=== PATIENT | female | born 1980 | race Two or more races ===

== ENCOUNTER → 2024-02-20 | Outpatient (CLI) | payer MEDICAID, SELFPAY ==
--- NOTE | 2024-02-20 11:00 | XR_ITS ---
Examination: Thyroid sonography complete TECHNIQUE: Multiple grayscale sonographic images right and left thyroid lobes are carful analysis Exam date and time: February 20, 2024 1136 hours INDICATIONS: Diagnosis hypothyroidism 10 years ago. FINDINGS: Right thyroid 6.1 x 2.7 x 3.1 cm No solid nodules Left thyroid 5.8 x 2.8 x 3.0 cm Lower pole nodule avascular 7 x 6 x 7 mm IMPRESSION: Thyromegaly, consider correlation with oral I-123 thyroid uptake and scan Small solid nodule left thyroid
== END | disposition home or self-care (01) ==
PROVIDERS: PCP Internal Medicine; Referring Provider Internal Medicine; Visit Provider Internal Medicine
DX: E01.0 Iodine-deficiency related diffuse (endemic) goiter (principal)
CPT/HCPCS: 76536